=== PATIENT | female | born 1985 | race Caucasian/White ===

== ENCOUNTER → 2023-07-10 06:19 | Day surgery (SDC) | payer BC, SELFPAY | LOC: GI 06:19 | PROVIDERS: ATTENDING PHYSICIAN Internal Medicine | DX: R19.4 Change in bowel habit (principal); K29.60 Other gastritis without bleeding; B96.81 Helicobacter pylori [H. pylori] as the cause of diseases classified elsewhere; R14.0 Abdominal distension (gaseous); R12 Heartburn | CPT/HCPCS: 45380; 43239; 88305; 88342 ==